=== PATIENT | male | born 1970 | race Caucasian/White ===

== ENCOUNTER 2017-05-26 23:45 | Emergency (ER) | payer MEDICAID, OTHER ==
[~2017-05-26] VITALS: Ht 175.3 cm; Wt 81.7 kg
[2017-05-26 23:48] VITALS: Ht 175.3 cm; Wt 81.7 kg
[2017-05-27] MEDS ORDERED: FLUORESCEIN STRIP LEFT EYE ONE (02:00)
[2017-05-27] MEDS ORDERED: TETRACAINE 0.5% 4 ML OPH LEFT EYE SCH (02:00)
--- NOTE | 2017-05-27 02:15 | ERD ---
ER Documentation Chief Complaint Chief Complaint BIB FAMILY C/O LEFT EYE FOREIGN BODY POSSIBLE METAL. HPI 47-year-old male presents here to emergency department for complaints of left eye foreign body possible metal in the left eye while cutting metal today. Patient's complaint of pain sharp pain, 6/10 scale, accompanied with tearing. Patient denies any vision changes. Patient denies any direct trauma. ROS All systems reviewed and are negative except as per history of present illness. Medications Home Meds Reported Medications [none] Unknown Strength No Conflict Check 05/27/17 Allergies Allergies: Coded Allergies: No Known Allergy (Unverified , 05/26/17) PMhx/Soc Medical and Surgical Hx: pt denies Medical Hx, pt denies Surgical Hx Hx Alcohol Use: No Hx Substance Use: No Hx Tobacco Use: No Smoking Status: Never smoker FmHx Family History: No coronary disease, No diabetes, No other Physical Exam Vitals Vital Signs Date Time Temp Pulse Resp B/P Pulse Ox O2 Delivery O2 Flow Rate FiO2 05/26/17 23:48 97.8 94 18 127/81 99 Physical Exam GENERAL: The patient is well developed and appropriate for usual state of health, in no apparent distress. HEENT: Atraumatic. Ears: Bilateral eyes are PERRLA EOM intact. Left eye cornea noted to have a foreign body, mental. Noted some erythema and left conjunctiva and tearing. No eye discharge. Normal tympanic membrane, no erythema or bulging. No ear canal swelling. No ear discharge. Nose: normal nasal turbinates , no erythema or swelling. Normal nasal discharge. Throat: oropharynx clear. No tonsillar swelling or tonsillar exudates. No lymphadenopathy. CHEST: Clear to auscultation bilaterally. There are no rales, wheezes or rhonchi. HEART: Regular rate and rhythm. No murmurs, clicks, rubs or gallops. No S3 or S4. ABDOMEN: Soft, nontender and nondistended. Good bowel sounds. No rebound or guarding. No gross peritonitis. No gross organomegaly or masses. No March sign or McBurney point tenderness. BACK: No midline or flank tenderness. EXTREMITIES: Equal pulses bilaterally. There is no peripheral clubbing, cyanosis or edema. No focal swelling or erythema. Full range of motion. Grossly neurovascularly intact. NEURO: Alert and oriented. Cranial nerves 2-12 intact. Motor strength in all 4 extremities with 5/5 strength. Sensation grossly intact. Normal speech and gait. SKIN: There is no apparent rash or petechia. The skin is warm and dry. HEMATOLOGIC AND LYMPHATIC: There is no evidence of excessive bruising or lymphedema. No gross cervical, axillary, or inguinal lymphadenopathy. Results 24 hrs Current Medications Medications (Trade) Dose Ordered Sig/Aylin Route PRN Reason Start Time Stop Time Status Last Admin Dose Admin Tetracaine HCl (Tetracaine 0.5% Steri-Unit Brandy) 1 drop ONCE LEFT EYE 05/27/17 02:00 05/27/17 01:50 Fluorescein Sodium (Sawas-Z-Xmvqw) 1 strip ONCE ONCE LEFT EYE 05/27/17 02:00 05/27/17 02:01 DC 05/27/17 01:50 Diphtheria/ Tetanus/Acell Pertussis (Adacel) 0.5 ml ONCE ONCE IM* 05/27/17 02:30 05/27/17 02:31 Procedure Note: After obtaining informed consent, the left eye was numbed with Tetracaine and was stained using fluorescein dye. After staining the eye, A Wood's lamp was used to evaluate the eye. There is metal foreign body noted in the left eye. Patient tolerated procedure well. Procedures/MDM Clinical decision making: Patient symptoms most likely consistent with metal foreign body noted in the left eye, this was removed without any difficulty. No vision changes. No symptoms of any other eye emergencies at this time. The foreign body was removed without any difficulty. Patient verbalized very much better afterwards. Patient will be given prescription for get Vigamox, ibuprofen and tramadol. Patient was advised to follow-up with ophthalmology specialist in 2 days for reevaluation of symptoms. Patient was advised to return to emergency department for any worsening symptoms. Disposition: Home. Stable Departure Diagnosis: Primary Impression: Corneal foreign body Encounter type: initial encounter Laterality: left Qualified Code: T15.02XA - Foreign body of left cornea, initial encounter Condition: Stable Patient Instructions: Corneal Foreign Body, Removed ANA COOL NP May 27, 2017 02:15
[2017-05-27] MEDS ORDERED: DIPHTH/TET/ACEL PERTUSS (ADULT) 0.5 ML VIAL IM* ONE (02:30)
[2017-05-27] MEDS ORDERED: TRAM50TA2 PO (02:36)
[2017-05-27] MEDS ORDERED: VIGA LEFT EYE (02:36)
== END 2017-05-27 02:46 | disposition home or self-care (01) ==
LOC: FTE 23:45
DX: T15.02XA Foreign body in cornea, left eye, initial encounter (principal); X58.XXXA Exposure to other specified factors, initial encounter; Y92.9 Unspecified place or not applicable; Z23 Encounter for immunization
CPT/HCPCS: 65220; 90715; Z7502; Z7610

== ENCOUNTER 2018-04-04 14:27 | Emergency (ER) | END 2018-04-04 16:25 | disposition home or self-care (01) ==